=== PATIENT | female | born 1945 | race Caucasian/White ===

== ENCOUNTER 2016-06-16 20:07 | Inpatient (IN) | payer OTHER ==
[~2016-06-16] VITALS: Ht 160 cm; Wt 78.5 kg
[2016-06-16 21:45] LABS: HEMOGLOBIN 10.3 gm/dl (12.3-15.3); RED BLOOD COUNT 3.23 M/UL (4.00-5.10); WHITE BLOOD COUNT 11.2 K/UL (4.5-11.0)
[2016-06-17] MEDS ORDERED: POTASSIUM CHLO10 MEQ PO (02:28)
[2016-06-17] MEDS ORDERED: SYNTHROID 125125 MCG PO (02:28)
[2016-06-17] MEDS ORDERED: COUMADIN2 MG PO (02:28)
[2016-06-17] MEDS ORDERED: FLECAINIDE ACET50 MG PO (02:29)
[2016-06-17] MEDS ORDERED: ZYLOPRIM 100 M100 MG PO (02:29)
[2016-06-17 14:36] LABS: HEMOGLOBIN 9.3 gm/dl (12.3-15.3); RED BLOOD COUNT 2.94 M/UL (4.00-5.10)
[2016-06-18 03:46] LABS: HEMOGLOBIN 8.4 gm/dl (12.3-15.3); RED BLOOD COUNT 2.66 M/UL (4.00-5.10)
[2016-06-18 11:27] LABS: ACINETOBACTER BAUMANNII Not Detected (Negative); CANDIDA ALBICANS Not Detected (Negative); CANDIDA KRUSEI Not Detected (Negative); CANDIDA TROPICALIS Not Detected (Negative); ENTEROCOCCUS Not Detected (Negative); ESCHERICHIA COLI Not Detected (Negative); HAEMOPHILUS INFLUENZAE Not Detected (Negative); KLEBSIELLA OXYTOCA Not Detected (Negative); KLEBSIELLA PNEUMONIAE Not Detected (Negative); KPC-CARBAPENEM-RESISTANCE GENE Not Detected (Negative); PROTEUS Not Detected (Negative); PSEUDOMONAS AERUGINOSA Not Detected (Negative); SERRATIA MARCESANS Not Detected (Negative); STAPHYLOCOCCUS Not Detected (Negative); STAPHYLOCOCCUS AUREUS Not Detected (Negative); STREP AGALACTIAE (GROUP B) Not Detected (Negative); STREP PYOGENES (GROUP A) Not Detected (Negative); STREPTOCOCCUS Not Detected (Negative); mecA (METHICILLIN RESIST GENE Not Detected (Negative); vanA/B (VANCOMYCIN RESIST GENE Not Detected (Negative)
[2016-06-19 04:29] LABS: HEMOGLOBIN 7.6 gm/dl (12.3-15.3); RED BLOOD COUNT 2.45 M/UL (4.00-5.10)
[2016-06-19 09:26] LABS: HEMOGLOBIN 8.1 gm/dl (12.3-15.3); RED BLOOD COUNT 2.58 M/UL (4.00-5.10); WHITE BLOOD COUNT 7.1 K/UL (4.5-11.0)
[2016-06-20 03:48] LABS: HEMOGLOBIN 7.3 gm/dl (12.3-15.3); RED BLOOD COUNT 2.34 M/UL (4.00-5.10); WHITE BLOOD COUNT 6.9 K/UL (4.5-11.0)
[2016-06-21 08:34] LABS: RED BLOOD COUNT 3.06 M/UL (4.00-5.10); WHITE BLOOD COUNT 8.5 K/UL (4.5-11.0)
[2016-06-21 08:35] LABS: HEMOGLOBIN 9.6 gm/dl (12.3-15.3)
[2016-06-22 07:08] LABS: HEMOGLOBIN 9.3 gm/dl (12.3-15.3); RED BLOOD COUNT 3.03 M/UL (4.00-5.10); WHITE BLOOD COUNT 7.9 K/UL (4.5-11.0)
[2016-06-22] MEDS ORDERED: FLAGYL500 MG PO (15:06)
[2016-06-22] MEDS ORDERED: ZOVIRAX 200 MG200 MG PO (15:06)
[2016-06-22] MEDS ORDERED: MARINOL2.5 MG PO (15:07)
[2016-06-22] MEDS ORDERED: ENSURE LIQUID237 ML PO (15:07)
[2016-06-22] MEDS ORDERED: NIFEREX 150 MG150 MG PO (15:08)
[2016-09-18] MEDS ORDERED: VITAMIN B12 INJ (01:17)
[2016-09-18] MEDS ORDERED: CLARITIN10 M2 PO (01:20)
[2016-09-18] MEDS ORDERED: OXYCODONE HCL5 MG PO (01:20)
[2016-09-18] MEDS ORDERED: ZOLOFT25 MG PO (01:22)
[2016-09-18] MEDS ORDERED: PROTONIX 40 MG40 M1 PO (01:22)
[2016-09-18] MEDS ORDERED: IRON18 MG PO (01:26)
== END 2016-06-22 15:45 | disposition home or self-care (01) | DRG 871 ==
LOC: ER1 20:07 → PROG CARE 06-17 00:20 → ZEROF 06-17 00:20 → M/S 06-17 00:20 → PROG CARE 06-17 02:15 → M/S 06-20 17:59
PROVIDERS: Emergency Medicine; Family Medicine; Hospitalist; Internal Medicine; Internal Medicine Hematology & Oncology; Internal Medicine Nephrology; ADMIT Internal Medicine
DX: A41.89 Other specified sepsis (principal); K85.90 Acute pancreatitis without necrosis or infection, unspecified; C90.00 Multiple myeloma not having achieved remission; N17.9 Acute kidney failure, unspecified; N39.0 Urinary tract infection, site not specified; K57.92 Diverticulitis of intestine, part unspecified, without perforation or abscess without bleeding; E83.52 Hypercalcemia; N18.3 Chronic kidney disease, stage 3 (moderate); I48.0 Paroxysmal atrial fibrillation; E03.9 Hypothyroidism, unspecified; E86.0 Dehydration; T45.515A Adverse effect of anticoagulants, initial encounter; E87.6 Hypokalemia; E83.42 Hypomagnesemia; D64.89 Other specified anemias; E11.649 Type 2 diabetes mellitus with hypoglycemia without coma; Z80.9 Family history of malignant neoplasm, unspecified; Z79.01 Long term (current) use of anticoagulants; Z95.2 Presence of prosthetic heart valve; Z90.710 Acquired absence of both cervix and uterus; Z95.0 Presence of cardiac pacemaker; Z85.21 Personal history of malignant neoplasm of larynx; Z88.6 Allergy status to analgesic agent; Z88.5 Allergy status to narcotic agent; Z88.3 Allergy status to other anti-infective agents; Z91.013 Allergy to seafood
CPT/HCPCS: 36415; 36430; 71010; 72128; 72131; 80048; 80053; 81001; 82150; 82308; 82330; 82784; 82962; 83036; 83690; 83735; 83883; 84100; 84132; 84165; 84484; 85025; 85027; 85610; 86850; 86860; 86870; 86880; 86900; 86901; 86902; 86920; 86922; 87040; 87075; 87077; 87081; 87086; 87186; 87880; 93005; 96374; 97110; 97116; 97530; 99285; J1956; J2270; J2405; J2550; J3430; J7030; J7050; P9040

== ENCOUNTER 2016-07-16 22:38 | Emergency (ER) | payer OTHER ==
[~2016-07-16 22:38] MED LIST: COUMADIN2 MG PO; ENSURE LIQUID237 ML PO; FLAGYL500 MG PO; FLECAINIDE ACET50 MG PO; MARINOL2.5 MG PO; NIFEREX 150 MG150 MG PO; POTASSIUM CHLO10 MEQ PO; SYNTHROID 125125 MCG PO; ZOVIRAX 200 MG200 MG PO; ZYLOPRIM 100 M100 MG PO
[2016-07-17 02:09] LABS: HEMOGLOBIN 9.1 gm/dl (12.3-15.3); RED BLOOD COUNT 2.84 M/UL (4.00-5.10); WHITE BLOOD COUNT 11.9 K/UL (4.5-11.0)
[2016-09-18] MEDS ORDERED: VITAMIN B12 INJ (01:17)
[2016-09-18] MEDS ORDERED: OXYCODONE HCL5 MG PO (01:20)
[2016-09-18] MEDS ORDERED: CLARITIN10 M2 PO (01:20)
[2016-09-18] MEDS ORDERED: ZOLOFT25 MG PO (01:22)
[2016-09-18] MEDS ORDERED: PROTONIX 40 MG40 M1 PO (01:22)
[2016-09-18] MEDS ORDERED: IRON18 MG PO (01:26)
== END 2016-07-17 04:30 | disposition home or self-care (01) ==
LOC: ER1 22:38
PROVIDERS: Family Medicine
DX: C90.00 Multiple myeloma not having achieved remission (principal); Z88.6 Allergy status to analgesic agent; Z88.8 Allergy status to other drugs, medicaments and biological substances
CPT/HCPCS: 36415; 80053; 82550; 82553; 83735; 83874; 84100; 84484; 85025; 93005; 96374; 96375; 99284; J2270; J2405